=== PATIENT | male | born 1990 | race Two or more races ===

== ENCOUNTER 2017-03-27 19:15 | Emergency (ER) | payer OTHER ==
[2017-03-27 19:55] VITALS: BP 139/83
[2017-03-27] MEDS ORDERED: IBUPROFEN 800 MG TABLET PO ONE (21:43)
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
[2017-03-28] MEDS ORDERED: HYDROCODONE/ACETAMINOPHEN 5-325 MG 6 TAB/DSPK PO PRN (00:03)
== END 2017-03-27 23:45 | disposition home or self-care (01) ==
LOC: ER 19:15
DX: S16.1XXA Strain of muscle, fascia and tendon at neck level, initial encounter (principal); V49.40XA Driver injured in collision with unspecified motor vehicles in traffic accident, initial encounter; F17.200 Nicotine dependence, unspecified, uncomplicated
CPT/HCPCS: 72125; 99284